=== PATIENT | male | born 1980 | race African-American/Black ===

== ENCOUNTER 2024-08-11 18:04 | Emergency (ER) | payer MEDICAID ==
[~2024-08-11] VITALS: Ht 170.2 cm; Wt 79.0 kg
[2024-08-11 18:08] VITALS: BP 148/102; PULSE 96; TEMP 98.4; O2SAT 99
[2024-08-11] MEDS ORDERED: VANCOMYCIN 1G PREMIX 200 ML IV ONE (21:00)
[2024-08-11] MEDS: VANCOMYCIN 1GM PMX (XELLIA) 200 ML IV NR (21:30)
[2024-08-11 21:45] LABS: BASOPHILS % 1.1 % (0.0-2.0); EOSINOPHILS % 3.6 % (0.0-5.0); HEMATOCRIT. 37.6 % (42.0-52.0); HEMOGLOBIN. 12.4 g/dL (14.0-18.0); LYMPHOCYTES % 11.9 % (20.0-50.0); MEAN CORPUSCULAR HEMOGLOBIN 26.4 pg (28.0-32.0); MEAN CORPUSCULAR VOLUME 80.1 fL (80.0-94.0); MEAN PLATELET VOLUME 7.7 fl (7.4-10.4); MONOCYTES % 9.1 % (2.0-8.0); NEUTROPHILS % 74.3 % (40.0-76.0); PLATELET 434 x1000/uL (130-400); RED BLOOD CELL COUNT 4.69 mill/uL (4.7-6.1); RED CELL DISTRIBUTION WIDTH 14.6 % (11.6-14.6); WHITE BLOOD COUNT 5.6 x1000/uL (4.5-11.0)
[2024-08-11 21:51] LABS: CALCIUM 9.7 mg/dL (8.7-10.4); CARBON DIOXIDE 30 mEq/L (21-32); CHLORIDE 105 mEq/L (98-107); POTASSIUM 4.4 mEq/L (3.5-5.1); SODIUM 139 mEq/L (136-145)
[2024-08-11 21:57] LABS: CREATININE 1.4 mg/dL (0.6-1.3); GLUCOSE 89 mg/dL (70-105); UREA NITROGEN BLOOD 16 mg/dL (9-23)
[2024-08-11] MEDS ORDERED: CEPH500T MT (22:20)
[2024-08-11] MEDS ORDERED: DOXY100C74 MT (22:20)
[2024-08-11] MEDS ORDERED: IBUP-2030 MT (22:20)
[2024-08-11] MEDS: KETOROLAC 30MG/ML VIAL IM ONE (22:30)
[2024-08-11] MEDS: HYDROCODONE/ACETAMINOPHEN 5/325MG TABLET PO ONE (22:30)
[2024-08-11 22:50] VITALS: RESP 18
== END 2024-08-11 22:51 | disposition home or self-care (01) ==
LOC: ER 18:04 → CANBEDREQ 22:16 → ER 22:51
DX: L03.115 Cellulitis of right lower limb (principal)
CPT/HCPCS: 99284; 80048; 83605; 85025; 87040; 36415; 73630; 96372; J3370; J1885